=== PATIENT | male | born 1995 ===

== ENCOUNTER 2017-03-28 04:37 | Emergency (ER) | payer OTHER | END 2017-03-28 09:21 | disposition home or self-care (01) | LOC: ER1 04:37 | DX: S50.12XA Contusion of left forearm, initial encounter (principal); S80.812A Abrasion, left lower leg, initial encounter; F41.9 Anxiety disorder, unspecified; V89.2XXA Person injured in unspecified motor-vehicle accident, traffic, initial encounter; Y93.89 Activity, other specified; Y92.410 Unspecified street and highway as the place of occurrence of the external cause | CPT/HCPCS: 36415; 72125; 73090; 73590; 99284 ==